=== PATIENT | female | born 1940 | race Caucasian/White ===

== ENCOUNTER 2020-03-08 14:24 | Emergency (ER) | payer MEDICARE ==
[2020-03-08 14:31] VITALS: RESP 18
[2020-03-08] MEDS ORDERED: SODIUM CHLORIDE 0.9% 500 ML 500 ML IV STA (14:56)
--- NOTE | 2020-03-08 15:02 | ED ---
General Adult HPI - General Chief complaint: Arrhythmia/Palpitations Stated complaint: fluttering in chest Time Seen by Provider: 03/08/20 14:25 Source: patient, RN notes reviewed, old records reviewed Mode of arrival: ambulatory Limitations: no limitations - History of Present Illness Initial comments: This is a 79-year-old female presents emergency Department complaining that she's had some fluttering in her chest that lasted about 5 seconds. Patient states she had a slight sensation of lightheadedness and it all resolved and 5 seconds. Patient denies any chest pain. Patient denies any difficulty breathing shortest breath per patient denies any headache patient denies numbness or weakness. Patient states she has had multiple episodes of this in the past and stopped drinking as much caffeine so that hopefully this would slow the frequency of these events down. Patient denies any abdominal pain patient denies any recent nausea vomiting diarrhea. Patient is completely asymptomatic at this time - Related Data Allergies Allergy/AdvReac Type Severity Reaction Status Date / Time clarithromycin [From Biaxin] Allergy Nausea & Verified 03/08/20 14:32 Vomiting erythromycin base Allergy Nausea & Verified 03/08/20 14:32 Vomiting Sulfa (Sulfonamide Allergy Rash/Hives Verified 03/08/20 14:32 Antibiotics) Review of Systems ROS Statement: Those systems with pertinent positive or pertinent negative responses have been documented in the HPI. ROS Other: All systems not noted in ROS Statement are negative. Past Medical History Past Medical History: Hypertension Additional Past Medical History / Comment(s): brain aneurism with repair History of Any Multi-Drug Resistant Organisms: None Reported Past Surgical History: Appendectomy Additional Past Surgical History / Comment(s): repair of brain aneurism Past Psychological History: No Psychological Hx Reported Smoking Status: Never smoker Past Alcohol Use History: None Reported Past Drug Use History: None Reported General Exam - General Exam Comments Initial Comments: GENERAL: Patient is well-developed and well-nourished. Patient is nontoxic and well- hydrated and is in no acute distress. ENT: Neck is soft and supple. No significant lymphadenopathy is noted. Oropharynx is clear. Moist mucous membranes. Neck has full range of motion without eliciting any pain. EYES: The sclera were anicteric and conjunctiva were pink and moist. Extraocular movements were intact and pupils were equal round and reactive to light. Eyelids were unremarkable. PULMONARY: Unlabored respirations. Good breath sounds bilaterally. No audible rales rhonchi or wheezing was noted. CARDIOVASCULAR: There is a regular rate and rhythm without any murmurs gallops or rubs. ABDOMEN: Soft and nontender with normal bowel sounds. SKIN: Skin is clear with no lesions or rashes and otherwise unremarkable. NEUROLOGIC: Patient is alert and oriented x3. Cranial nerves II through XII are grossly intact. Motor and sensory are also intact. Normal speech, volume and content. Symmetrical smile. MUSCULOSKELETAL: Normal extremities with adequate strength and full range of motion. No lower extremity swelling or edema. No calf tenderness. LYMPHATICS: No significant lymphadenopathy is noted PSYCHIATRIC: Normal psychiatric evaluation. Limitations: no limitations Course Vital Signs 03/08/20 03/08/20 14:27 15:08 Temperature 98.2 F Pulse Rate 80 75 Respiratory 18 18 Rate Blood Pressure 167/68 132/68 O2 Sat by Pulse 97 98 Oximetry Medical Decision Making - Medical Decision Making EKG shows normal sinus rhythm at 83 bpm SC interval 266 QRS is 86 QT interval 382 QTC is 448. Patient's EKG has no ST segment elevation or depression I will back into reevaluate the patient she was without symptoms at this time. Patient states she's had no symptoms since she's been emergency department. Pat ient states besides 5 seconds of fluttering she had earlier she had no other symptoms today. Patient states this is happened multiple times to her in the reason she came in today was because it happened in the morning as opposed normally when it happens at night. Patient states she'll follow-up with her physician to asked to get a event monitor - Lab Data Result diagrams: 03/08/20 14:43 03/08/20 14:43 Lab Results 03/08/20 03/08/20 03/08/20 Range/Units 14:43 14:43 14:43 WBC 3.9 (3.8-10.6) k/uL RBC 4.53 (3.80-5.40) m/uL Hgb 13.9 (11.4-16.0) gm/dL Hct 41.3 (34.0-46.0) % MCV 91.0 (80.0-100.0) fL MCH 30.6 (25.0-35.0) pg MCHC 33.6 (31.0-37.0) g/dL RDW 13.4 (11.5-15.5) % Plt Count 197 (150-450) k/uL Neutrophils % 55 % Lymphocytes % 32 % Monocytes % 6 % Eosinophils % 4 % Basophils % 1 % Neutrophils # 2.2 (1.3-7.7) k/uL Lymphocytes # 1.3 (1.0-4.8) k/uL Monocytes # 0.2 (0-1.0) k/uL Eosinophils # 0.2 (0-0.7) k/uL Basophils # 0.0 (0-0.2) k/uL PT 9.8 (9.0-12.0) sec INR 0.9 (<1.2) APTT 23.6 (22.0-30.0) sec Sodium 139 (137-145) mmol/L Potassium 4.4 (3.5-5.1) mmol/L Chloride 108 H (98-107) mmol/L Carbon Dioxide 24 (22-30) mmol/L Anion Gap 7 mmol/L BUN 22 H (7-17) mg/dL Creatinine 0.58 (0.52-1.04) mg/dL Est GFR (CKD-EPI)AfAm >90 (>60 ml/min/1.73 sqM) Est GFR (CKD-EPI)NonAf 88 (>60 ml/min/1.73 sqM) Glucose 145 H (74-99) mg/dL Calcium 9.6 (8.4-10.2) mg/dL Magnesium 2.0 (1.6-2.3) mg/dL Total Bilirubin 0.3 (0.2-1.3) mg/dL AST 23 (14-36) U/L ALT 11 (4-34) U/L Alkaline Phosphatase 85 (38-126) U/L Troponin I (0.000-0.034) ng/mL Total Protein 6.5 (6.3-8.2) g/dL Albumin 3.9 (3.5-5.0) g/dL /03/22 Range/Units 14:43 WBC (3.8-10.6) k/uL RBC (3.80-5.40) m/uL Hgb (11.4-16.0) gm/dL Hct (34.0-46.0) % MCV (80.0-100.0) fL MCH (25.0-35.0) pg MCHC (31.0-37.0) g/dL RDW (11.5-15.5) % Plt Count (150-450) k/uL Neutrophils % % Lymphocytes % % Monocytes % % Eosinophils % % Basophils % % Neutrophils # (1.3-7.7) k/uL Lymphocytes # (1.0-4.8) k/uL Monocytes # (0-1.0) k/uL Eosinophils # (0-0.7) k/uL Basophils # (0-0.2) k/uL PT (9.0-12.0) sec INR (<1.2) APTT (22.0-30.0) sec Sodium (137-145) mmol/L Potassium (3.5-5.1) mmol/L Chloride (98-107) mmol/L Carbon Dioxide (22-30) mmol/L Anion Gap mmol/L BUN (7-17) mg/dL Creatinine (0.52-1.04) mg/dL Est GFR (CKD-EPI)AfAm (>60 ml/min/1.73 sqM) Est GFR (CKD-EPI)NonAf (>60 ml/min/1.73 sqM) Glucose (74-99) mg/dL Calcium (8.4-10.2) mg/dL Magnesium (1.6-2.3) mg/dL Total Bilirubin (0.2-1.3) mg/dL AST (14-36) U/L ALT (4-34) U/L Alkaline Phosphatase (38-126) U/L Troponin I <0.012 (0.000-0.034) ng/mL Total Protein (6.3-8.2) g/dL Albumin (3.5-5.0) g/dL Disposition Clinical Impression: Palpitations Disposition: HOME SELF-CARE Instructions (If sedation given, give patient instructions): Heart Palpitations (ED) Is patient prescribed a controlled substance at d/c from ED?: No Referrals: Emerson Pardo DO [Primary Care Provider] - 1-2 days Time of Disposition: 15:58
[2020-03-08 15:09] LABS: Basophils % (A) 1 %; Eosinophils # (A) 0.2 k/uL (0-0.7); Eosinophils % (A) 4 %; HCT 41.3 % (34.0-46.0); HGB 13.9 gm/dL (11.4-16.0); Lymphocytes # (A) 1.3 k/uL (1.0-4.8); Lymphocytes % (A) 32 %; MCH 30.6 pg (25.0-35.0); MCHC 33.6 g/dL (31.0-37.0); Mean Platelet Volume 8.7; Monocytes # (A) 0.2 k/uL (0-1.0); Monocytes % (A) 6 %; Neutrophils # (A) 2.2 k/uL (1.3-7.7); Neutrophils % (A) 55 %; Platelet Count 197 k/uL (150-450); RBC 4.53 m/uL (3.80-5.40); RDW 13.4 % (11.5-15.5); WBC 3.9 k/uL (3.8-10.6)
--- NOTE | 2020-03-08 15:15 | XR ---
EXAMINATION TYPE: XR chest 2V DATE OF EXAM: 03/08/2020 COMPARISON: 05/27/2012 HISTORY: Dysrhythmia and dizziness TECHNIQUE: 2 views FINDINGS: Heart is normal. Lungs are clear of infiltrate. There is no pleural effusion. There are no hilar masses. Bony thorax is intact. IMPRESSION: No active cardiopulmonary disease. No change.
[2020-03-08 15:18] LABS: INR 0.9 (<1.2); Partial Thromboplastin Time 23.6 sec (22.0-30.0); Prothrombin Time 9.8 sec (9.0-12.0)
[2020-03-08 15:33] LABS: ALT 11 U/L (4-34); AST 23 U/L (14-36); African American GFR (CKD) >90 (>60 ml/min/1.73 sqM); Albumin 3.9 g/dL (3.5-5.0); Alkaline Phosphatase 85 U/L (38-126); Anion Gap 7 mmol/L; Blood Urea Nitrogen 22 mg/dL (7-17); Calcium 9.6 mg/dL (8.4-10.2); Carbon Dioxide 24 mmol/L (22-30); Chloride 108 mmol/L (98-107); Glucose 145 mg/dL (74-99); Non-African American GFR(CKD) 88 (>60 ml/min/1.73 sqM); Potassium 4.4 mmol/L (3.5-5.1); Sodium 139 mmol/L (137-145); Total Bilirubin 0.3 mg/dL (0.2-1.3); Total Protein 6.5 g/dL (6.3-8.2)
[2020-03-08 16:13] VITALS: BP 134/66; PULSE 69; TEMP 98
== END 2020-03-08 16:13 | disposition home or self-care (01) ==
LOC: EC 14:24
DX: R00.2 Palpitations (principal); I49.8 Other specified cardiac arrhythmias; Z88.1 Allergy status to other antibiotic agents; Z88.2 Allergy status to sulfonamides
CPT/HCPCS: 36415; 71046; 80053; 83735; 84443; 84484; 85025; 85610; 85730; 93005; 99285

== ENCOUNTER → 2020-03-19 | Outpatient (CLI) | payer MEDICARE ==
--- NOTE | 2020-04-07 11:34 | EM ---
EVENT MONITOR EVENT MONITOR: Patient was monitored between the March 19 and March 22, 2020. The rhythm strip revealed sinus mechanism with episode of 4 complex ventricular tachycardia and patient had an episode of nonsustained ventricular tachycardia, the longest being 22 complexes. Consistent with nonsustained ventricular tachycardia. KAYA / MAYLINN: [id number] /
== END | disposition home or self-care (01) ==
LOC: RADECHMAIN 12:16
PROVIDERS: ATTEND Family Medicine
DX: R00.2 Palpitations (principal); I47.2 Ventricular tachycardia
CPT/HCPCS: 93270

== ENCOUNTER 2020-03-22 14:49 | Inpatient (IN) | payer MEDICARE ==
--- NOTE | 2020-03-22 15:19 | ED ---
General Adult HPI - General Chief complaint: Arrhythmia/Palpitations Stated complaint: sent by Time Seen by Provider: 03/22/20 15:03 Source: patient Mode of arrival: ambulatory Limitations: no limitations - History of Present Illness Initial comments: Dictation was produced using [employer] dictation software. please excuse any grammatical, word or spelling errors. This patient was cared for during a federal and state declared state of emergenc y secondary to Covid 19 Chief Complaint: 79-year-old female with past medical history of hypertension and brain aneurysm with repair presents with chest discomfort emergency department for palpitations. History of Present Illness: Patient is a 79-year-old female her story begins approximately 2 weeks ago. At that time she was evaluated for palpitations. She had blood work EKG and monitoring here in emergency department. She was discharged told to follow up with her primary care physician. Follow with her primary care physician who ordered for her to get a heart monitor. 4 days ago patient had and 10 second episode of palpitations where she became lightheaded. She had another episode yesterday. This morning she had gotten a call from another doctor who is been monitoring her heart monitor told her to seek medical attention immediately. Allegedly there was concern of perhaps ventricular tachycardia. Patient is asymptomatic at this time. She has no complaints. The ROS documented in this emergency department record has been reviewed and confirmed by me. Those systems with pertinent positive or negative responses have been documented in the HPI. All other systems are other negative and/or noncontributory. PHYSICAL EXAM: General Impression: Alert and oriented x3, not in acute distress HEENT: Normocephalic atraumatic, extra-ocular movements intact, pupils equal and reactive to light bilaterally, mucous membranes moist. Cardiovascular: Heart regular rate and rhythm Chest: Able to complete full sentences, no retractions, no tachypnea Abdomen: abdomen soft, non-tender, non-distended, no organomegaly Musculoskeletal: Pulses present and equal in all extremities, no peripheral edema Motor: no focal deficits noted Neurological: CN II-XII grossly intact, no focal motor or sensory deficits noted Skin: Intact with no visualized rashes Psych: Normal affect and mood ED course: 79-year-old female presents with palpitations and concerning findings seen on heart monitor. She was instructed to come to the emergency department. Signs upon arrival are within acceptable limits. quality assurance monitor appears to be normal sinus rhythm. Patient denies any complaints at this time. EKG shows normal sinus rhythm without any abnormalities. X-rays unremarkable. Laboratory evaluation obtained showing no acute processes. Considering that there is concern that patient had an episode of ventricular tachycardia was concerned that patient has cardiac disease. Patient reevaluated at bedside found to be in stable medical condition. Patient be admitted with cardiology consultation. I believe would benefit from observation stay, cardiac monitoring and cardiology evaluation. Discussed patient case with Dr. Lopez is willing to accept patient's care. EKG interpretation: Ventricular rate 65, normal sinus rhythm, GA interval 166, QRS 82, QTC 420. No GA prolongation, no QTC prolongation, no ST or T-wave changes noted. Overall, this EKG is unremarkable - Related Data Allergies Allergy/AdvReac Type Severity Reaction Status Date / Time clarithromycin [From Biaxin] Allergy Nausea & Verified 03/22/20 14:55 Vomiting erythromycin base Allergy Nausea & Verified 03/22/20 14:55 Vomiting Sulfa (Sulfonamide Allergy Rash/Hives Verified 03/22/20 14:55 Antibiotics) Review of Systems ROS Statement: Those systems with pertinent positive or pertinent negative responses have been documented in the HPI. ROS Other: All systems not noted in ROS Statement are negative. Past Medical History Past Medical History: Hypertension Additional Past Medical History / Comment(s): brain aneurism with repair History of Any Multi-Drug Resistant Organisms: None Reported Past Surgical History: Appendectomy Additional Past Surgical History / Comment(s): repair of brain aneurism Past Psychological History: No Psychological Hx Reported Smoking Status: Never smoker Past Alcohol Use History: None Reported Past Drug Use History: None Reported General Exam Limitations: no limitations Course Vital Signs 03/22/20 14:55 Temperature 98.5 F Pulse Rate 74 Respiratory 18 Rate Blood Pressure 163/86 O2 Sat by Pulse 96 Oximetry Medical Decision Making - Lab Data Result diagrams: 03/22/20 15:45 03/22/20 15:45 Lab Results 03/22/20 03/22/20 03/22/20 Range/Units 15:45 15:45 15:45 WBC 4.9 (3.8-10.6) k/uL RBC 4.61 (3.80-5.40) m/uL Hgb 13.5 (11.4-16.0) gm/dL Hct 40.9 (34.0-46.0) % MCV 88.6 (80.0-100.0) fL MCH 29.2 (25.0-35.0) pg MCHC 33.0 (31.0-37.0) g/dL RDW 13.0 (11.5-15.5) % Plt Count 175 (150-450) k/uL Neutrophils % 59 % Lymphocytes % 28 % Monocytes % 6 % Eosinophils % 3 % Basophils % 1 % Neutrophils # 2.9 (1.3-7.7) k/uL Lymphocytes # 1.4 (1.0-4.8) k/uL Monocytes # 0.3 (0-1.0) k/uL Eosinophils # 0.2 (0-0.7) k/uL Basophils # 0.0 (0-0.2) k/uL Sodium 140 (137-145) mmol/L Potassium 4.1 (3.5-5.1) mmol/L Chloride 110 H (98-107) mmol/L Carbon Dioxide 25 (22-30) mmol/L Anion Gap 5 mmol/L BUN 21 H (7-17) mg/dL Creatinine 0.63 (0.52-1.04) mg/dL Est GFR (CKD-EPI)AfAm >90 (>60 ml/min/1.73 sqM) Est GFR (CKD-EPI)NonAf 86 (>60 ml/min/1.73 sqM) Glucose 91 (74-99) mg/dL Calcium 9.7 (8.4-10.2) mg/dL Magnesium 2.2 (1.6-2.3) mg/dL Troponin I <0.012 (0.000-0.034) ng/mL Disposition Clinical Impression: Palpitation Disposition: ADMITTED IP TO THIS [facility] Condition: Fair Referrals: Emerson Pardo DO [Primary Care Provider] - 1-2 days Decision Time: 16:46
[2020-03-22 15:59] LABS: Basophils % (A) 1 %; Eosinophils # (A) 0.2 k/uL (0-0.7); Eosinophils % (A) 3 %; HCT 40.9 % (34.0-46.0); HGB 13.5 gm/dL (11.4-16.0); Lymphocytes # (A) 1.4 k/uL (1.0-4.8); Lymphocytes % (A) 28 %; MCH 29.2 pg (25.0-35.0); MCV 88.6 fL (80.0-100.0); Mean Platelet Volume 8.1; Monocytes # (A) 0.3 k/uL (0-1.0); Monocytes % (A) 6 %; Neutrophils # (A) 2.9 k/uL (1.3-7.7); Neutrophils % (A) 59 %; Platelet Count 175 k/uL (150-450); RBC 4.61 m/uL (3.80-5.40); WBC 4.9 k/uL (3.8-10.6)
[2020-03-22 16:10] LABS: African American GFR (CKD) >90 (>60 ml/min/1.73 sqM); Anion Gap 5 mmol/L; Blood Urea Nitrogen 21 mg/dL (7-17); Calcium 9.7 mg/dL (8.4-10.2); Carbon Dioxide 25 mmol/L (22-30); Chloride 110 mmol/L (98-107); Glucose 91 mg/dL (74-99); Magnesium 2.2 mg/dL (1.6-2.3); Non-African American GFR(CKD) 86 (>60 ml/min/1.73 sqM); Potassium 4.1 mmol/L (3.5-5.1); Sodium 140 mmol/L (137-145)
--- NOTE | 2020-03-22 16:15 | XR ---
EXAMINATION TYPE: XR chest 1V portable DATE OF EXAM: 03/22/2020 Comparison: 03/08/2020 Clinical History: 79-year-old female dysrhythmia Findings: The heart is upper limits of normal in size. Aortopulmonary vasculature within normal limits. No cons olidation or pleural effusion. Impression: Borderline heart size. No acute cardiopulmonary process.
[2020-03-22] MEDS ORDERED: NALOXONE 0.4 MG/ML 1 ML VIAL IV PRN (16:46)
[2020-03-22] MEDS: SODIUM CHLORIDE 0.9% 1,000 ML IV SCH (18:24)
[2020-03-22] MEDS ORDERED: ACETAMINOPHEN TAB 500 MG TAB PO PRN (19:26)
[2020-03-22] MEDS ORDERED: HYDROcodone/APAP 5-325MG 1 EACH TAB PO PRN (19:26)
[2020-03-22] MEDS ORDERED: TEMAZEPAM 15 MG CAP PO PRN (19:26)
[2020-03-22] MEDS ORDERED: ALPRAZolam 0.25 MG TAB PO PRN (19:26)
--- NOTE | 2020-03-22 20:11 | HP ---
HISTORY AND PHYSICAL DATE OF SERVICE: 03/22/2020 CHIEF COMPLAINT: Palpitations. HISTORY OF PRESENT ILLNESS: This 79-year-old woman with a past medical history of multiple medical problems including hypertension, history of brain aneurysm repair, history of appendectomy, being followed by Dr. Emerson Pardo in the outpatient setting is complaining of some palpitations. The patient had a flutter feeling in the chest and the patient was recently put on Holter monitoring and the patient also had some dizziness prior to the admission, which occurs very occasionally and 4 days ago about 10 second episodes of palpitations and then yesterday also the patient had palpitations and apparently ventricular tachycardia was noted in the monitor and the patient was [facility] to [facility] and was admitted for evaluation and treatment. There is no history of any chest pain. No history of headache, loss of consciousness, seizures. No history of nausea, vomiting, diarrhea, fever, rigors or chills at this time. PAST MEDICAL HISTORY: Hypertension, history of brain aneurysm repair, appendectomy. MEDICATIONS: Prior to admission include home medications are: 1. Vitamin C 500 mg p.o. daily. 2. Zoloft 25 mg. 3. Multivitamins 1 p.o. daily. 4. Meloxicam 15 mg p.o. daily. 5. ( ) 10 mg daily. ALLERGIES: CLARITHROMYCIN, ERYTHROMYCIN, SULFA. FAMILY HISTORY: No history of heart attacks or strokes in the family. SOCIAL HISTORY: No history of smoking, no history of alcohol intake. REVIEW OF SYSTEMS: ENT No history of diminished hearing or vision. CARDIOVASCULAR No angina or palpitations. RESPIRATORY No cough, no hemoptysis. GI No nausea, vomiting, or diarrhea. No dysuria or hematuria. NERVOUS No numbness or weakness. ALLERGY/IMMUNOLOGY No asthma or hayfever. MUSCULOSKELETAL As mentioned earlier. HEMATOLOGY/ONCOLOGY Negative. ENDOCRINE No history of diabetes or hypothyroidism. CONSTITUTIONAL As mentioned earlier. DERMATOLOGY Negative. RHEUMATOLOGY Negative. PSYCHIATRY As mentioned earlier. PHYSICAL EXAMINATION: Patient is alert and oriented x3. Pulse 66, blood pressure 137/64, respiration 18, temperature 98.5, pulse ox 96% on room air. HEENT: Conjunctivae normal. Oral mucosa moist. NECK: No jugular venous distention. No lymph node enlargement. CARDIOVASCULAR: S1, S2. RESPIRATORY: Diminished breath sounds at the bases. No rhonchi, no crackles. ABDOMEN: Soft, nontender. No mass palpable. LEGS: No edema, no swelling. NERVOUS SYSTEM: Higher functions mentioned earlier. Moves all four limbs. No focal motor or sensory deficits. LYMPHATICS: No lymph node in neck or axilla. SKIN: No rash. JOINTS: No active deforming arthropathy. LABS: CBC within normal. Sodium 140, potassium 4.1, chloride 110, BUN is 21. ASSESSMENT: 1. Palpitations and dizziness for evaluation, rule out cardiac arrhythmia, ventricular tachycardia. 2. History of hypertension. 3. History of brain aneurysm with repair. 4. History of appendectomy. 5. FULL CODE. RECOMMENDATIONS AND DISCUSSION: In this 79-year-old woman who presented with multiple complex medical issues, we will monitor the patient closely, continue the current management and symptomatic treatment. I would recommend telemetry, monitor lytes, resume the home medications, Cardiology consultation, 2D echo with Doppler. Guarded prognosis because of multiple complex medical issues. Further recommendations to follow. COVID-19 has also been sought. MMODL / IJN: [id number] /
[2020-03-22 20:55] LABS: Appearance,Urine Clear (Clear); Color,Urine Yellow; Protein,Urine Negative (Negative)
[2020-03-22 20:56] LABS: Bilirubin,Urine Negative (Negative); Blood,Urine Negative (Negative); Glucose,Urine (UA) Negative (Negative); Ketones,Urine Negative (Negative); Leukocyte Esterase,Urine Small (Negative); Nitrite,Urine Negative (Negative); Urobilinogen,Urine <2.0 mg/dL (<2.0)
[2020-03-22 21:00] LABS: ALT 12 U/L (4-34); AST 26 U/L (14-36); African American GFR (CKD) >90 (>60 ml/min/1.73 sqM); Albumin 4.3 g/dL (3.5-5.0); Alkaline Phosphatase 94 U/L (38-126); Anion Gap 7 mmol/L; Blood Urea Nitrogen 19 mg/dL (7-17); Carbon Dioxide 26 mmol/L (22-30); Chloride 109 mmol/L (98-107); Glucose 95 mg/dL (74-99); Non-African American GFR(CKD) 87 (>60 ml/min/1.73 sqM); Potassium 4.5 mmol/L (3.5-5.1); Sodium 142 mmol/L (137-145); Total Bilirubin 0.7 mg/dL (0.2-1.3)
[2020-03-22 21:01] LABS: Bacteria,Urine Rare /hpf; Mucus,Urine Rare /hpf; RBC,Urine 5 /hpf (0-5); Squamous Epithelial Cell,Urine 3 /hpf (0-4); WBC,Urine 9 /hpf (0-5)
--- NOTE | 2020-03-22 21:17 | P.CRDCN ---
History of Present Illness Consult date: 03/22/20 History of present illness: This is a 79-year-old female with history of hypertension being treated with lisinopril has had palpitations for many years. Over the last 2 weeks he became more frequent. Usually feels like some fluttering in the throat area lasting a few seconds, maximum being 10 seconds. On couple of occasions recently. She felt lightheaded. She was seen in the emergency room and was monitored for 2 hours and was sent home because he didn't have any arrhythmias at the time. Subsequently patient had event monitor. This showed evidence of PVCs and episodes of nonsustained V. tach lasting up to 10 seconds. In view of his recurrent nonsustained V. tach.\, Patient is advised to go to the hospital. Since admission patient hasn't had any episodes of nonsustained V. tach. Her blood work is essentially normal. She denied any chest pain, shortness of breath or syncopal episodes. She does have a systolic murmur consistent with aortic stenosis. She has with a transmitted murmur or bruit in the both carotids. Patient will be continued on telemetry. She'll be started on beta allen therapy. Echocardiogram will be done. If there is no significant aortic stenosis, we'll may proceed with stress test or cardiac catheterization for diagnosis. Carotid duplex study was also begun. Further recommendations depend upon clinical course and findings on the above tests Review of Systems As per the chart Past Medical History Past Medical History: Hypertension Additional Past Medical History / Comment(s): brain aneurism with repair History of Any Multi-Drug Resistant Organisms: None Reported Past Surgical History: Appendectomy Additional Past Surgical History / Comment(s): repair of brain aneurism Past Psychological History: No Psychological Hx Reported Smoking Status: Never smoker Past Alcohol Use History: None Reported Past Drug Use History: None Reported Medications and Allergies Home Medications Medication Instructions Recorded Confirmed Type Ascorbic Acid [Vitamin C] 500 mg PO DAILY 03/22/20 03/22/20 History Lisinopril [Prinivil] 10 mg PO DAILY 03/22/20 03/22/20 History Meloxicam [Mobic] 15 mg PO DAILY 03/22/20 03/22/20 History Multivitamin [Multivitamins Adult 1 tab PO DAILY 03/22/20 03/22/20 History Gummies] Sertraline [Zoloft] 25 mg PO DAILY 03/22/20 03/22/20 History Allergies Allergy/AdvReac Type Severity Reaction Status Date / Time clarithromycin [From Biaxin] Allergy Nausea & Verified 03/22/20 17:02 Vomiting erythromycin base Allergy Nausea & Verified 03/22/20 17:02 Vomiting Sulfa (Sulfonamide Allergy Rash/Hives Verified 03/22/20 17:02 Antibiotics) Physical Exam Vitals: Vital Signs Temp Pulse Pulse Resp BP BP Pulse Ox 03/22/20 19:32 98.5 F 66 18 137/66 96 03/22/20 19:30 67 18 03/22/20 19:20 98.3 F 71 16 157/78 98 03/22/20 19:12 66 18 137/66 96 03/22/20 18:23 66 18 137/66 96 03/22/20 16:55 18 141/76 03/22/20 14:55 98.5 F 74 18 163/86 96 Intake and Output 03/22/20 03/22/20 03/22/20 06:59 14:59 22:59 Intake Total 480 Balance 480 Intake: Oral 480 Other: # Voids 1 Weight 85.729 kg 85.729 kg GENERAL EXAM: Patient is alert and oriented and doesn't appear to be in any acute distress HEENT: Normocephalic. Normal reaction of pupils, equal size, normal range of extraocular motion. No erythema or exudates in the throat. NECK: No masses, no nuchal rigidity. CHEST: No chest wall deformity. LUNGS: Equal air entry with no crackles or wheeze. HEART: S1 and S2 normal with systolic murmur heard all over the precordium, most prominent at the aortic area ABDOMEN: No hepatosplenomegaly, normal bowel sounds, no guarding or rigidity. SKIN: No rashes CENTRAL NERVOUS SYSTEM: No focal deficits. EXTREMITIES: No cyanosis, clubbing or edema. Results 03/22/20 15:45 03/22/20 20:09 Cardiac Enzymes 03/22/20 03/22/20 Range/Units 15:45 20:09 AST 26 (14-36) U/L Troponin I <0.012 (0.000-0.034) ng/mL CBC 03/22/20 Range/Units 15:45 WBC 4.9 (3.8-10.6) k/uL RBC 4.61 (3.80-5.40) m/uL Hgb 13.5 (11.4-16.0) gm/dL Hct 40.9 (34.0-46.0) % Plt Count 175 (150-450) k/uL Comprehensive Metabolic Panel 03/22/20 03/22/20 Range/Units 15:45 20:09 Sodium 140 142 (137-145) mmol/L Potassium 4.1 4.5 (3.5-5.1) mmol/L Chloride 110 H 109 H (98-107) mmol/L Carbon Dioxide 25 26 (22-30) mmol/L BUN 21 H 19 H (7-17) mg/dL Creatinine 0.63 0.61 (0.52-1.04) mg/dL Glucose 91 95 (74-99) mg/dL Calcium 9.7 10.0 (8.4-10.2) mg/dL AST 26 (14-36) U/L ALT 12 (4-34) U/L Alkaline Phosphatase 94 (38-126) U/L Total Protein 7.0 (6.3-8.2) g/dL Albumin 4.3 (3.5-5.0) g/dL Current Medications Generic Name Dose Route Start Last Admin Trade Name Freq PRN Reason Stop Dose Admin Acetaminophen 500 mg 03/22/20 19:26 Tylenol Tab PO Q6HR PRN Fever and/or Mild Pain Hydrocodone Bitart/Acetaminophen 1 each 03/22/20 19:26 Lupton 5-325 PO Q6HR PRN Pain Alprazolam 0.25 mg 03/22/20 19:26 Xanax PO TID PRN Anxiety Ascorbic Acid 500 mg 03/23/20 09:00 Vitamin C PO DAILY [facility] Sodium Chloride 1,000 mls @ 20 mls/hr 03/22/20 17:00 03/22/20 18:24 Saline 0.9% IV 20 mls/hr .Q24H RITU Administration Lisinopril 10 mg 03/23/20 09:00 Zestril PO DAILY [facility] Meloxicam 15 mg 03/23/20 09:00 Mobic PO DAILY [facility] Multivitamins 1 each 03/23/20 09:00 Theragran PO DAILY [facility] Naloxone HCl 0.2 mg 03/22/20 16:46 Narcan IV Q2M PRN Opioid Reversal Pantoprazole Sodium 40 mg 03/23/20 07:30 Protonix PO AC-BRKFST RITU Sertraline HCl 25 mg 03/23/20 09:00 Zoloft PO DAILY R[facility]U Temazepam 15 mg 03/22/20 19:26 Restoril PO HS PRN Insomnia Intake and Output 03/22/20 03/22/20 03/22/20 06:59 14:59 22:59 Intake Total 480 Balance 480 Intake: Oral 480 Other: # Voids 1 Weight 85.729 kg 85.729 kg Patient Weight 03/23/20 06:59 Weight 85.729 kg 03/22/20 15:45 03/22/20 20:09 EKG Interpretations (text) Sinus rhythm Assessment and Plan (1) Wide-complex tachycardia Current Visit: Yes Status: Acute Code(s): I47.2 - VENTRICULAR TACHYCARDIA SNOMED Code(s): 278954294 (2) Palpitations Current Visit: Yes Status: Acute Code(s): R00.2 - PALPITATIONS SNOMED Code(s): 86008378 (3) Aortic stenosis Current Visit: Yes Status: Acute Code(s): I35.0 - NONRHEUMATIC AORTIC (VALVE) STENOSIS SNOMED Code(s): 22910082 Plan: Patient will be started on beta allen. Echocardiogram was obtained. Subsequently, patient may be considered for stress test or cardiac catheterization
[2020-03-23 06:55] LABS: Cholesterol 187 mg/dL (<200); HDL Cholesterol 53 mg/dL (40-60); LDL Cholesterol,Calculated 114 mg/dL (0-99); Triglycerides 98 mg/dL (<150)
[2020-03-23] MEDS: ASCORBIC ACID 500 MG TAB PO SCH (08:46)
[2020-03-23] MEDS: MULTIVITAMINS, THERA 1 EACH TAB PO SCH (08:46)
[2020-03-23] MEDS: SERTRALINE 50 MG TAB PO SCH (08:46)
[2020-03-23] MEDS: METOPROLOL TARTRATE 25 MG TAB PO SCH ×2 (08:46→20:56)
[2020-03-23] MEDS: PANTOPRAZOLE 40 MG TABLET PO SCH (08:46)
[2020-03-23] MEDS: MELOXICAM 7.5 MG TAB PO SCH (08:46)
[2020-03-23] MEDS: HEPARIN SODIUM,PORCINE 5,000 UNIT/ML 1 ML VIAL SQ SCH ×2 (08:47→20:56)
[2020-03-23] MEDS ORDERED: LISINOPRIL 10 MG TAB PO SCH (09:00)
--- NOTE | 2020-03-23 09:20 | PN ---
PROGRESS NOTE Mrs. Menjivar is in sinus rhythm. She was admitted yesterday because of PVCs and some repetitive ventricular ectopic beats on event monitor. She has had some palpitations on and off, but last night was very comfortable. Isolated PVCs were noted. Vitals are stable. There is no JVD. S1-S2 heard normally. Ejection systolic murmur is audible at the base with well preserved second heart sound. Patient possibly has mild aortic stenosis. Lungs are clear. Abdomen is soft, nontender. Lower extremities reveal normal pulses. No edema. Central nervous system is normal. I am recommending that she should have an echocardiogram tomorrow and possibly a stress echo as well. I will discuss this with Dr. Ruiz. Patient will be staying today and echo is scheduled. We will schedule a stress echo after talking to Dr. Ruiz. I will add lisinopril 10 mg daily. Continue beta allen. MMODL / IJN: [id number] /
[2020-03-23] MEDS: LISINOPRIL 10 MG TAB PO SCH (12:28)
--- NOTE | 2020-03-23 16:48 | PN ---
PROGRESS NOTE DATE OF SERVICE: 03/23/2020 This 79-year-old woman who was admitted with palpitations, dizziness had apparent multiple PVCs. The patient being closely monitored. Cardiology planning a stress echo tomorrow. No chest pain. No palpitations. No fever. The cholesterol slightly elevated. EXAM: Alert and oriented times three. Pulse 60. Blood pressure 151/75, respiration 12, temperature 98.4, pulse ox 97% on room air. HEENT: Conjunctivae normal. Oral mucosa moist. NECK is no jugular venous distention. No carotid bruit. No lymph node enlargement. Cardiovascular systems: S1, S2 muffled. RESPIRATION: Breath sounds diminished in the bases. No rhonchi. No crackles. ABDOMEN: Soft, nontender. LEGS are no edema. No swelling. LAB STUDIES: CBC within normal limits. Sodium 140, potassium 4.5. 114. UA noted. ASSESSMENT: 1. Palpitation, dizziness, rule out possibly cardiac arrhythmia and ventricular premature contractions. 2. History of hypertension. 3. Rule out coronary artery disease. 4. Possible acute urinary tract infection on presentation. 5. History of brain aneurysm with repair. 6. History of appendectomy. 7. Hyperlipidemia. 8. FULL CODE. RECOMMENDATIONS AND DISCUSSION: Recommend to continue current medications, symptomatic treatment. Otherwise, continue with the antibiotics and I would also recommend add Lipitor to the current regimen. Guarded prognosis. Further recommendations to follow. MMODL / IJN: [id number] / MTDD
[2020-03-23] MEDS: SODIUM CHLORIDE 0.9% 1,000 ML IV SCH (17:10)
[2020-03-23] MEDS ORDERED: ATORVASTATIN 10 MG TAB PO SCH (21:00)
[2020-03-24] MEDS: PANTOPRAZOLE 40 MG TABLET PO SCH (06:27)
[2020-03-24] MEDS: ASCORBIC ACID 500 MG TAB PO SCH (07:13)
[2020-03-24] MEDS: SERTRALINE 50 MG TAB PO SCH (07:13)
[2020-03-24] MEDS: MULTIVITAMINS, THERA 1 EACH TAB PO SCH (07:13)
[2020-03-24] MEDS: HEPARIN SODIUM,PORCINE 5,000 UNIT/ML 1 ML VIAL SQ SCH (07:13)
[2020-03-24] MEDS: MELOXICAM 7.5 MG TAB PO SCH (07:27)
[2020-03-24] MEDS: METOPROLOL TARTRATE 25 MG TAB PO SCH ×2 (07:27→13:19)
[2020-03-24] MEDS: LISINOPRIL 10 MG TAB PO SCH (07:27)
[2020-03-24 07:53] VITALS: RESP 12
[2020-03-24] MEDS ORDERED: CAFFEINE CITRATE 60 MG/3 ML VIAL IV PRN (09:38)
[2020-03-24] MEDS ORDERED: AMINOPHYLLINE 500 MG/20 ML VIAL IV PRN (09:38)
[2020-03-24] MEDS ORDERED: REGADENOSON 0.4 MG/5 ML SYRINGE IV ONE (09:38)
[2020-03-24 11:17] VITALS: BP 150/74; PULSE 55; TEMP 97.6
--- NOTE | 2020-03-24 12:00 | ECHOF ---
Referral Reason:vtach?? MEASUREMENTS -------- HEIGHT: 162.6 cm WEIGHT: 85.7 kg BP: 154/73 RVIDd: 3.2 cm (< 3.3) IVSd: 1.8 cm (0.6 - 1.1) LVIDd: 3.4 cm (3.9 - 5.3) LVPWd: 2.1 cm (0.6 - 1.1) IVSs: 2.2 cm LVIDs: 1.9 cm LVPWs: 1.8 cm LAESV Index (A-L): 37.19 ml/m Ao Diam: 3.1 cm (2.0 - 3.7) AV Cusp: 1.3 cm (1.5 - 2.6) MV EXCURSION: 12.755 mm (> 18.000) MV EF SLOPE: 47 mm/s (70 - 150) EPSS: 0.2 cm MV E Terry: 0.80 m/s MV DecT: 251 ms MV A Terry: 0.87 m/s MV E/A Ratio: 0.91 AV maxP.23 mmHg AV meanP.36 mmHg AR PHT: 513 ms RAP: 5.00 mmHg RVSP: 35.07 mmHg FINDINGS -------- This was a technically adequate study. The left ventricular size is normal. There is severe concentric left ventricular hypertrophy. Ove rall left ventricular systolic function is normal with, an EF between 65 - 70 %. The diastolic fill ing pattern is normal for the age of the patient 14.66. The right ventricle is normal in size. LA is moderately dilated 34-39 ml/m2 The right atrium is mildly enlarged. Interatrial and interventricular septum intact. The aortic valve is trileaflet and appears structurally normal. There is mild aortic regurgitation. There is mild aortic stenosis present. Peak/mean gradient across the Aortic Valve is 21.23mmHg / 10.36mmHg. Moderate mitral annular calcification present. Vwvo-kx-pnzvbikx mitral regurgitation is present. Mild tricuspid regurgitation present. There is mild pulmonary hypertension. The right ventricular systolic pressure, as measured by Doppler, is 35.07mmHg. Trace/mild (physiologic) pulmonic regurgitation. The aortic root size is normal. The inferior vena cava is mildly dilated. There is no pericardial effusion. CONCLUSIONS -------- 1. This was a technically adequate study. 2. The left ventricular size is normal. 3. There is severe concentric left ventricular hypertrophy. 4. Overall left ventricular systolic function is normal with, an EF between 65 - 70 %. 5. The diastolic filling pattern is normal for the age of the patient 14.66 6. The right ventricle is normal in size. 7. LA is moderately dilated 34-39 ml/m2 8. The right atrium is mildly enlarged. 9. Interatrial and interventricular septum intact. 10. The aortic valve is trileaflet and appears structurally normal. 11. There is mild aortic regurgitation. 12. There is mild aortic stenosis present. 13. Peak/mean gradient across the Aortic Valve is 21.23mmHg / 10.36mmHg. 14. Moderate mitral annular calcification present. 15. Scgw-lu-ymlwncuv mitral regurgitation is present. 16. Mild tricuspid regurgitation present. 17. There is mild pulmonary hypertension. 18. The right ventricular systolic pressure, as measured by Doppler, is 35.07mmHg. 19. Trace/mild (physiologic) pulmonic regurgitation. 20. The aortic root size is normal. 21. The inferior vena cava is mildly dilated. 22. There is no pericardial effusion. WET PROCESS TECHNICIAN: Callie Valentin RDCS
--- NOTE | 2020-03-24 13:14 | P.PN ---
Subjective This is a pleasant 79-year-old female past medical history significant for hypertension and brain aneurysm status post coil repair. She denies prior history of coronary artery disease. Telemetry tracings this afternoon indicate an episode of nonsustained ventricular tachycardia. She did decline to take her Lopressor this morning until she could have food on her stomach. Blood pressure is 150/74 heart rate 55 afebrile maintaining oxygen saturation on room air. Echocardiogram obtained reveals preserved hyperdynamic LV systolic function with ejection fraction 65-70%, severe concentric LVH, moderately dilated left atrium, mild aortic stenosis with a mean gradient of 10 mmHg, mild aortic regurgitation, mild to moderate mitral regurgitation, mild tricuspid regurgitation and mild pulmonary hypertension with an RVSP of 35 mmHg. She is seen and examined resting comfortably laying flat in bed in no acute distress. She has no sy mptoms of chest pain, shortness of breath, dizziness or palpitations. Currently maintained on atorvastatin 10 mg daily, lisinopril 10 mg daily and Lopressor 25 mg twice a day. GENERAL: Well-appearing, well-nourished and in no acute distress. NECK: Supple without JVD or thyromegaly. LUNGS: Breath sounds clear to auscultation bilaterally. Respiration equal and unlabored. No wheezes, rales or rhonchi. HEART: Regular rate and rhythm with systolic ejection murmur at the base, no rubs or gallops. S1 and S2 heard. EXTREMITIES: Normal range of motion, no edema. No clubbing or cyanosis. Peripheral pulses intact. ASSESSMENT Nonsustained ventricular tachycardia Valvular heart disease, aortic stenosis, aortic regurgitation, mitral regurgitation and tricuspid regurgitation Hypertension PLAN Increase atorvastatin to 40 mg daily due to her 40% 10 year risk of cardiovascular event. Initiate aspirin 81 mg daily. Echocardiogram has been reviewed and there is no evidence of significant for motion abnormalities. Recommend proceeding with a Lexiscan stress test to assess for reversible cardiac ischemia. If abnormal we will proceed with cardiac catheterization. Importance of beta allen therapy discussed with the patient at length. Further recommendations to follow based on clinical course. Nurse Practitioner note has been reviewed, I agree with a documented findings and plan of care. Patient was seen and examined. Objective - Vital Signs Vital signs: Vital Signs Temp 97.6 F 03/24/20 11:16 Pulse 55 L 03/24/20 11:16 Resp 12 03/24/20 11:16 BP 150/74 03/24/20 11:16 Pulse Ox 97 03/24/20 11:16 Intake & Output 03/23/20 03/24/20 03/24/20 18:59 06:59 18:59 Intake Total 440 Balance 440 Weight 85.73 kg Intake: Oral 240 Other 200 Other: Voiding Method Toilet # Voids 1 2 - Labs CBC & Chem 7: 03/22/20 15:45 03/22/20 20:09
--- NOTE | 2020-03-24 13:31 | NM ---
EXAMINATION TYPE: NM stress lexiscan cardiolite DATE OF EXAM: 03/24/2020 COMPARISON: NONE HISTORY: V. Tach per order. History of asthma and hypertension with palpitations and vertigo. TECHNIQUE: After the intravenous administration of 9.3 mCi Tc 99m Sestamibi - Cardiolite resting SPE CT images acquired 55 minutes post injection. The patient received 0.4mg Lexiscan, 24.2 mCi Tc 99m Sestamibi - Stress images obtained [address] injection FINDINGS: Review of stress and rest SPECT images demonstrates no distinct perfusion abnormality. Gated analysi s shows normal wall motion with an estimated left ventricular ejection fraction of 63 %. IMPRESSION: No scintigraphic evidence for reversible ischemia.
[2020-03-24] MEDS ORDERED: ATORVASTATIN 40 MG TAB PO SCH (21:00)
--- NOTE | 2020-03-25 04:14 | DS ---
DISCHARGE SUMMARY DATE OF SERVICE: 03/24/2020 FINAL DIAGNOSES: 1. Palpitation, dizziness possibly cardiac arrhythmia and ventricular PVCs. 2. Negative stress echo. 3. Hypertension. 4. Possible acute urinary tract infection, present on admission. 5. History of brain aneurysm with repair. 6. History of appendectomy. 7. Hyperlipidemia. 8. FULL CODE. DISCHARGE DISPOSITION: The patient will be discharged in stable condition with guarded prognosis. HISTORY OF PRESENT ILLNESS: This 79-year-old woman who was admitted with multiple symptoms including palpitations, dizziness. PVCs were noted in the event monitor. Cardiology performed a 2D echo and as well as Lexiscan stress test. The echocardiogram showed ejection fraction 60% to 70% and moderately dilated LA and moderate mitral calcification, mild to moderate mitral regurgitation. The stress test was reported as negative for reversible ischemia. Cardiology recommended outpatient followup. The LDL was found to be 114. Lipitor was initiated currently. On exam, vitals are stable. CARDIOVASCULAR: S1, S2 muffled. ABDOMEN: Soft. NERVOUS SYSTEM: No focal deficits. DISCHARGE ADVICE AND MEDICATIONS: 1. Diet is cardiac. 2. Activity limited until followup. 3. Follow up with Dr. Pardo in 2 to 3 days. 4. Follow up with Dr. Ruiz as recommended. Medications are: 1. Mobic 15 mg p.o. daily. 2. Multivitamins 1 p.o. daily. 3. Prinivil 10 mg p.o. daily. 4. Vitamin C 500 mg p.o. daily. 5. Zoloft 25 mg p.o. daily. 6. Lipitor 40 mg at bedtime. 7. Lopressor 25 mg p.o. b.i.d. Once again, the patient will be discharged in a stable condition with guarded prognosis. MMODL / IJN: [id number] /
[2020-03-25] MEDS ORDERED: ASPIRIN 81 MG PO SCH (09:00)
--- NOTE | 2020-03-27 13:50 | EST ---
EXERCISE STRESS AGE: 79 SEX: F HT: 64" WT: 189 lbs. PROTOCOL: Lexiscan STAGE: DURATION OF EXERCISE: HEART RATE REST: 51 BLOOD PRESSURE REST: 101/68 MAXIMUM HEART RATE ACHIEVED: 93 MAXIMUM BLOOD PRESSURE: 154/61 85% MPHR: 120 100% MPHR: 141 METS: INDICATIONS: Chest pain. CLINICAL INFORMATION: Stress data heart rate 51, pressure 107/68 mmHg. Baseline EKG showed sinus mechanism. 0.4 mg of Lexiscan were given over 15 seconds per protocol. Max heart rate was 93 beats per minute and maximum blood pressure was 154/61 mmHg. Clinically the patient did not have no symptoms. The EKG showed about 0.[address]-segment changes. CONCLUSION: 1. Nondiagnostic electrocardiogram stress testing stress testing in response to Lexiscan. 2. Please follow up on the Cardiolite portion on separate report from Radiology Department. MMODL / IJN: [id number] /
== END 2020-03-24 14:29 | disposition home or self-care (01) | DRG 309 ==
LOC: EC 14:49 → 1SOBS 16:46 → OBSVTOIN 03-23 13:57
PROVIDERS: ADMIT Hospitalist; ATTEND Hospitalist
DX: I47.2 Ventricular tachycardia (principal); N39.0 Urinary tract infection, site not specified; I27.20 Pulmonary hypertension, unspecified; I11.9 Hypertensive heart disease without heart failure; I49.3 Ventricular premature depolarization; Z11.59 Encounter for screening for other viral diseases; I08.3 Combined rheumatic disorders of mitral, aortic and tricuspid valves; E78.5 Hyperlipidemia, unspecified; Z79.1 Long term (current) use of non-steroidal anti-inflammatories (NSAID); Z79.899 Other long term (current) drug therapy; Z86.79 Personal history of other diseases of the circulatory system; Z98.890 Other specified postprocedural states; Z90.49 Acquired absence of other specified parts of digestive tract; Z88.1 Allergy status to other antibiotic agents; Z88.2 Allergy status to sulfonamides
CPT/HCPCS: 36415; 71045; 78452; 80048; 80053; 80061; 81001; 83735; 84484; 85025; 93005; 93017; 93306; 96360; 99285

== ENCOUNTER → 2020-11-24 | Outpatient (CLI) | payer MEDICARE | END | disposition home or self-care (01) | LOC: LABWHC1 15:29 | PROVIDERS: ATTEND Family Medicine | DX: Z20.822 Contact with and (suspected) exposure to COVID-19 (principal) | CPT/HCPCS: 87798 ×3; 87498; 87502 ×2; 87634; U0003; C9803; U0005 ==

== ENCOUNTER → 2022-02-03 | Outpatient (CLI) | payer MEDICARE, OTHER ==
--- NOTE | 2022-02-05 11:43 | MM ---
Reason for exam: screening (asymptomatic). Last mammogram was performed 5 years and 9 months ago. History: Patient is postmenopausal. Physical Findings: A clinical breast exam by your physician is recommended on an annual basis and results should be correlated with mammographic findings. MG 3D Screening Mammo W/Cad Bilateral CC and MLO view(s) were taken. Prior study comparison: May 12, 2016, bilateral MG screening mammo w CAD. May 08, 2015, bilateral MG screening mammo w CAD. There are scattered fibroglandular densities. There are benign appearing round, vascular calcifications bilaterally. There is no discrete abnormality. ASSESSMENT: Negative, BI-RAD 1 RECOMMENDATION: Routine screening mammogram of both breasts in 1 year.
== END | disposition home or self-care (01) ==
LOC: RADMAMWWP 13:45
PROVIDERS: ATTEND Family Medicine
DX: Z12.31 Encounter for screening mammogram for malignant neoplasm of breast (principal)
CPT/HCPCS: 77063; 77067

== ENCOUNTER 2022-07-16 07:35 | Emergency (ER) | payer OTHER ==
[2022-07-16 07:42] VITALS: TEMP 97.6
[2022-07-16] MEDS ORDERED: ONDANSETRON 4 MG/2 ML VIAL IVP STA (07:52)
[2022-07-16] MEDS ORDERED: SODIUM CHLORIDE 0.9% 1,000 ML IV STA (07:52)
--- NOTE | 2022-07-16 08:07 | ED ---
Back Pain HPI - General Chief Complaint: Back Pain/Injury Stated Complaint: poss heart attack Time Seen by Provider: 07/16/22 07:46 Source: patient, RN notes reviewed Limitations: no limitations - History of Present Illness Initial Comments: This is an 81-year-old female who presents to the emergency department for back pain. States that she was woken up from her sleep by sudden onset pain starting in the left shoulder and going down the back. Describes this as dull and heavy. Denies any chest pain or shortness of breath. Denies any cardiac history, and her only medical problem is hypertension. She took 2 full doses of aspirin, which she states did improve her symptoms. Patient was actively vomiting in the examination room, which she attributes to eating old soup last night. Denies any fevers, chills, sore throat, cough, dyspnea, chest pain, palpitatio ns, abdominal pain, diarrhea, or headaches. MD Complaint: back pain Similar Symptoms Previously: No Place: home - Related Data Home Medications Medication Instructions Recorded Confirmed Ascorbic Acid [Vitamin C] 500 mg PO DAILY 03/22/20 07/16/22 Meloxicam [Mobic] 15 mg PO DAILY 03/22/20 07/16/22 Multivitamin [Multivitamins Adult 1 tab PO DAILY 03/22/20 07/16/22 Gummies] Sertraline [Zoloft] 25 mg PO DAILY 03/22/20 07/16/22 Losartan Potassium [Cozaar] 100 mg PO DAILY 07/16/22 07/16/22 hydroCHLOROthiazide 12.5 mg PO DAILY 07/16/22 07/16/22 Allergies Allergy/AdvReac Type Severity Reaction Status Date / Time Sulfa (Sulfonamide Allergy Rash/Hives Verified 07/16/22 10:43 Antibiotics) clarithromycin [From Biaxin] AdvReac Nausea & Verified 07/16/22 10:43 Vomiting erythromycin base AdvReac Nausea & Verified 07/16/22 10:43 Vomiting Review of Systems ROS Statement: Those systems with pertinent positive or pertinent negative responses have been documented in the HPI. ROS Other: All systems not noted in ROS Statement are negative. Past Medical History Past Medical History: Hypertension Additional Past Medical History / Comment(s): brain aneurism with repair History of Any Multi-Drug Resistant Organisms: None Reported Past Surgical History: Appendectomy Additional Past Surgical History / Comment(s): repair of brain aneurism Past Psychological History: No Psychological Hx Reported Smoking Status: Never smoker Past Alcohol Use History: None Reported Past Drug Use History: None Reported General Exam Limitations: no limitations General appearance: alert, in no apparent distress Head exam: Present: atraumatic, normocephalic, normal inspection Respiratory exam: Present: normal lung sounds bilaterally. Absent: respiratory distress, wheezes, rales, rhonchi, stridor Cardiovascular Exam: Present: regular rate, normal rhythm, normal heart sounds. Absent: systolic murmur, diastolic murmur, rubs, gallop, clicks Extremities exam: Present: normal inspection, full ROM, normal capillary refill. Absent: tenderness, pedal edema, joint swelling, calf tenderness Back exam: Present: normal inspection, full ROM. Absent: tenderness, CVA tenderness (R), CVA tenderness (L) Neurological exam: Present: alert, oriented X3, CN II-XII intact Psychiatric exam: Present: normal affect, normal mood Skin exam: Present: warm, dry, intact, normal color. Absent: rash Course Vital Signs 07/16/22 07/16/22 07/16/22 07:39 10:00 11:10 Temperature 97.6 F 97.6 F Pulse Rate 79 53 L 64 Respiratory 20 18 20 Rate Blood Pressure 183/77 140/72 145/71 O2 Sat by Pulse 98 98 98 Oximetry 07/16/22 07/16/22 07/16/22 12:00 12:30 13:15 Temperature Pulse Rate 62 66 67 Respiratory 15 16 16 Rate Blood Pressure 146/73 135/71 135/73 O2 Sat by Pulse 96 97 96 Oximetry Medical Decision Making - Medical Decision Making This is an 81-year-old female who presents to the emergency department for back pain. Lab work was nonactionable. Chest x-ray reveals no acute cardiopulmonary process. EKG has no acute ST changes. Discussed with the patient that because her pain is not reproducible and given her age, a cardiac etiology needs to be ruled out. Discussed with the patient the option of admission versus repeating the second troponin and being discharged home. I did make it very clear that admission would give a more thorough cardiac workup and a negative second troponin cannot definitively rule out any cardiac issues. Patient states that because she is feeling much better, she is comfortable with just repeating the second troponin and being discharged home if that is negative. Second troponin did return as negative, and the patient is stable for discharge home. Return parameters discussed, in that if symptoms return, she is advised to return for further evaluation. Return precautions reviewed in depth, the patient is instructed to return to the emergency department with any new, worsening, or concerning symptoms. Patient verbalized understanding. This case was discussed in detail with the attending ED physician. Presentation, findings, and treatment plan discussed in detail as well. - Lab Data Result diagrams: 07/16/22 08:12 07/16/22 08:12 Lab Results 07/16/22 07/16/22 07/16/22 Range/Units 08:12 08:12 08:12 WBC 3.7 L (3.8-10.6) k/uL RBC 4.25 (3.80-5.40) m/uL Hgb 13.0 (11.4-16.0) gm/dL Hct 37.9 (34.0-46.0) % MCV 89.2 (80.0-100.0) fL MCH 30.6 (25.0-35.0) pg MCHC 34.3 (31.0-37.0) g/dL RDW 13.3 (11.5-15.5) % Plt Count 165 (150-450) k/uL MPV 8.8 Neutrophils % 55 % Lymphocytes % 29 % Monocytes % 7 % Eosinophils % 5 % Basophils % 1 % Neutrophils # 2.0 (1.3-7.7) k/uL Lymphocytes # 1.1 (1.0-4.8) k/uL Monocytes # 0.3 (0-1.0) k/uL Eosinophils # 0.2 (0-0.7) k/uL Basophils # 0.0 (0-0.2) k/uL PT 10.2 (9.0-12.0) sec INR 0.9 (<1.2) APTT 23.8 (22.0-30.0) sec D-Dimer 0.37 (<0.60) mg/L FEU Sodium 140 (137-145) mmol/L Potassium 3.9 (3.5-5.1) mmol/L Chloride 107 (98-107) mmol/L Carbon Dioxide 25 (22-30) mmol/L Anion Gap 8 mmol/L BUN 18 H (7-17) mg/dL Creatinine 0.64 (0.52-1.04) mg/dL Est GFR (CKD-EPI)AfAm >90 (>60 ml/min/1.73 sqM) Est GFR (CKD-EPI)NonAf 84 (>60 ml/min/1.73 sqM) Glucose 131 H (74-99) mg/dL Calcium 9.0 (8.4-10.2) mg/dL Magnesium 2.0 (1.6-2.3) mg/dL Total Bilirubin 0.5 (0.2-1.3) mg/dL AST 31 (14-36) U/L ALT 21 (4-34) U/L Alkaline Phosphatase 75 (38-126) U/L Troponin I (0.000-0.034) ng/mL Total Protein 5.8 L (6.3-8.2) g/dL Albumin 3.7 (3.5-5.0) g/dL Amylase 31 (30-110) U/L Lipase 146 (23-300) U/L 07/16/22 07/16/22 Range/Units 08:12 12:15 WBC (3.8-10.6) k/uL RBC (3.80-5.40) m/uL Hgb (11.4-16.0) gm/dL Hct (34.0-46.0) % MCV (80.0-100.0) fL MCH (25.0-35.0) pg MCHC (31.0-37.0) g/dL RDW (11.5-15.5) % Plt Count (150-450) k/uL MPV Neutrophils % % Lymphocytes % % Monocytes % % Eosinophils % % Basophils % % Neutrophils # (1.3-7.7) k/uL Lymphocytes # (1.0-4.8) k/uL Monocytes # (0-1.0) k/uL Eosinophils # (0-0.7) k/uL Basophils # (0-0.2) k/uL PT (9.0-12.0) sec INR (<1.2) APTT (22.0-30.0) sec D-Dimer (<0.60) mg/L FEU Sodium (137-145) mmol/L Potassium (3.5-5.1) mmol/L Chloride (98-107) mmol/L Carbon Dioxide (22-30) mmol/L Anion Gap mmol/L BUN (7-17) mg/dL Creatinine (0.52-1.04) mg/dL Est GFR (CKD-EPI)AfAm (>60 ml/min/1.73 sqM) Est GFR (CKD-EPI)NonAf (>60 ml/min/1.73 sqM) Glucose (74-99) mg/dL Calcium (8.4-10.2) mg/dL Magnesium (1.6-2.3) mg/dL Total Bilirubin (0.2-1.3) mg/dL AST (14-36) U/L ALT (4-34) U/L Alkaline Phosphatase (38-126) U/L Troponin I <0.012 <0.012 (0.000-0.034) ng/mL Total Protein (6.3-8.2) g/dL Albumin (3.5-5.0) g/dL Amylase (30-110) U/L Lipase (23-300) U/L - EKG Data EKG Comments: Sinus rhythm. Ventricular rate 69 bpm, WA interval 148 ms, QRS duration 93 ms, QTC 450 ms. - Radiology Data Radiology results: report reviewed, image reviewed Disposition Clinical Impression: Back pain Disposition: HOME SELF-CARE Instructions (If sedation given, give patient instructions): Back Pain (ED) Additional Instructions: Return to the emergency department with any new, worsening, or concerning symptoms. Alternate with ibuprofen and Tylenol as needed for pain relief. Follow up with your primary care provider in 1-2 days. Is patient prescribed a controlled substance at d/c from ED?: No Referrals: Emerson Pardo DO [Primary Care Provider] - 1-2 days
[2022-07-16 09:00] LABS: ALT 21 U/L (4-34); AST 31 U/L (14-36); African American GFR (CKD) >90 (>60 ml/min/1.73 sqM); Albumin 3.7 g/dL (3.5-5.0); Alkaline Phosphatase 75 U/L (38-126); Amylase 31 U/L (30-110); Anion Gap 8 mmol/L; Blood Urea Nitrogen 18 mg/dL (7-17); Carbon Dioxide 25 mmol/L (22-30); Chloride 107 mmol/L (98-107); Glucose 131 mg/dL (74-99); Lipase 146 U/L (23-300); Non-African American GFR(CKD) 84 (>60 ml/min/1.73 sqM); Potassium 3.9 mmol/L (3.5-5.1); Sodium 140 mmol/L (137-145); Total Bilirubin 0.5 mg/dL (0.2-1.3); Total Protein 5.8 g/dL (6.3-8.2)
[2022-07-16 09:01] LABS: Basophils % (A) 1 %; Eosinophils # (A) 0.2 k/uL (0-0.7); Eosinophils % (A) 5 %; HCT 37.9 % (34.0-46.0); Lymphocytes # (A) 1.1 k/uL (1.0-4.8); Lymphocytes % (A) 29 %; MCH 30.6 pg (25.0-35.0); MCHC 34.3 g/dL (31.0-37.0); MCV 89.2 fL (80.0-100.0); Mean Platelet Volume 8.8; Monocytes # (A) 0.3 k/uL (0-1.0); Monocytes % (A) 7 %; Neutrophils % (A) 55 %; Platelet Count 165 k/uL (150-450); RBC 4.25 m/uL (3.80-5.40); RDW 13.3 % (11.5-15.5); WBC 3.7 k/uL (3.8-10.6)
[2022-07-16 09:09] LABS: INR 0.9 (<1.2); Partial Thromboplastin Time 23.8 sec (22.0-30.0); Prothrombin Time 10.2 sec (9.0-12.0)
--- NOTE | 2022-07-16 09:13 | XR ---
EXAMINATION TYPE: XR chest 2V DATE OF EXAM: 07/16/2022 COMPARISON: 03/22/2020 INDICATION: Chest pain TECHNIQUE: Frontal and lateral views of the chest are obtained. FINDINGS: The heart size is normal. The pulmonary vasculature is normal. The lungs are clear. IMPRESSION: 1. No acute pulmonary process.
[2022-07-16 13:27] VITALS: BP 135/73; PULSE 67; RESP 16
== END 2022-07-16 14:18 | disposition home or self-care (01) ==
LOC: EC 07:35
DX: M54.9 Dorsalgia, unspecified (principal); I10 Essential (primary) hypertension; Z90.89 Acquired absence of other organs; Z88.2 Allergy status to sulfonamides; Z88.1 Allergy status to other antibiotic agents; Z79.899 Other long term (current) drug therapy
CPT/HCPCS: 36415; 93005; 85379; 80053; 82150; 83690; 83735; 84484; 85025; 85610; 85730; 71046; 99283; 96374; 96361; J2405

== ENCOUNTER 2023-05-02 07:29 | Day surgery (SDC) | payer MEDICARE, OTHER ==
[2023-05-02] MEDS ORDERED: SODIUM CHLORIDE 0.9% 500 ML 500 ML IV ONE (07:50)
[2023-05-02 07:51] VITALS: TEMP 98.3
[2023-05-02] MEDS ORDERED: fentaNYL (PF) 50 MCG/ML 2 ML AMP ONE (08:50)
[2023-05-02] MEDS ORDERED: BENZOCAINE SPRAY 1 CAN TOPICAL ONE (09:04)
[2023-05-02] MEDS ORDERED: MIDAZOLAM 2 MG/2 ML VIAL IVP ONE (09:05)
[2023-05-02] MEDS ORDERED: fentaNYL (PF) 50 MCG/ML 2 ML AMP IVP ONE (09:05)
--- NOTE | 2023-05-02 09:46 | ECHOT ---
TRANSESOPHAGEAL ECHOCARDIOGRAM REFERRING PHYSICIAN: Dr. Pardo. INDICATION: Valvular heart disease. PROCEDURE NOTE: After obtaining informed consent, transesophageal echocardiogram was performed in left lateral position using an Omniplane probe. Local and IV sedation were obtained using Xylocaine spray, 2 mg of Versed and 25 mcg of fentanyl. The patient tolerated the procedure well without any obvious immediate complications. FINDINGS: Mitral valve: Mitral valve is anatomically normal. It shows severe mitral annular calcification with moderate central mitral regurgitation. Aortic valve is a 3-leaflet valve, it shows sclerotic changes with mild restriction in leaflet mobility with mild aortic regurgitation. There is no evidence of aortic stenosis. There is acceleration of the color-flow Doppler across the left ventricular outflow tract secondary to septal hypertrophy. Tricuspid valve shows mild tricuspid regurgitation. Left ventricle has normal size and systolic function. Left atrium appears enlarged. Right atrium, right ventricle seen within normal limits. Aorta shows mild atherosclerotic changes. Interatrial septum, there is no evidence of sbiz-bj-bijzg shunt by color-flow Doppler. There is evidence of nzaro-tq-ydyg shunt with agitated saline contrast study. CONCLUSIONS: Normal left ventricular systolic function. Moderate central mitral regurgitation. Mild aortic regurgitation. PLAN: The patient does not have significant valvular heart disease that requires intervention at this stage. I will see her back in the office after the stress test is done and decide on further course of action. MMODL / IJN: [id number] /
[2023-05-02 10:07] VITALS: BP 123/60; PULSE 65; RESP 18
== END 2023-05-02 10:56 | disposition home or self-care (01) ==
LOC: CATHCVL 07:29
PROVIDERS: ATTEND Internal Medicine Cardiovascular Disease
DX: I08.3 Combined rheumatic disorders of mitral, aortic and tricuspid valves (principal); I10 Essential (primary) hypertension; E78.5 Hyperlipidemia, unspecified; Z88.2 Allergy status to sulfonamides
CPT/HCPCS: 93312; 93320; 93325; J2250; J3010